=== PATIENT | female | born 1975 | race Caucasian/White ===

== ENCOUNTER 2017-10-07 06:00 | Emergency (ER) | payer MEDICAID, OTHER ==
[~2017-10-07] VITALS: Ht 162.6 cm; Wt 70.0 kg
[2017-10-07] MEDS ORDERED: dexamethasone sod phosphate 10mg/ml inj IV STA (06:27)
[2017-10-07] MEDS ORDERED: proCHLORperazine 10 MG/2 ml inj IV ONE (06:30)
[2017-10-07] MEDS ORDERED: normal saline 1000ML IV soln IVB ONE (06:30)
[2017-10-07] MEDS ORDERED: diphenhydrAMINE 50 mg/ml inj IV ONE (06:30)
[2017-10-07] MEDS ORDERED: ketorolac tromethamine 15mg/ml inj. IV ONE (06:30)
[2017-10-07] MEDS ORDERED: SUMAtriptan succ. 6 MG/0.5ml vial SQ ONE (06:30)
[2017-10-07] MEDS ORDERED: PROC-8 PO (06:35)
[2017-10-07] MEDS ORDERED: SUMA25TA35 PO (06:35)
[2017-10-07 07:59] VITALS: BP 118/81
== END 2017-10-07 07:40 | disposition home or self-care (01) ==
LOC: ER 06:00
DX: G43.909 Migraine, unspecified, not intractable, without status migrainosus (principal); J45.909 Unspecified asthma, uncomplicated; Z90.49 Acquired absence of other specified parts of digestive tract; Z98.51 Tubal ligation status; Z88.1 Allergy status to other antibiotic agents; Z88.7 Allergy status to serum and vaccine
CPT/HCPCS: 96372; 96374; 96375; 99284; J0780; J1100; J1200; J1885; J3030; J7030

== ENCOUNTER 2017-10-08 20:33 | Emergency (ER) | payer MEDICAID, OTHER ==
[~2017-10-08] VITALS: Ht 162.6 cm; Wt 78.9 kg
[~2017-10-08 20:33] MED LIST: PROC-8 PO; SUMA25TA35 PO
[2017-10-08] MEDS ORDERED: morphine 4 MG/ML inj SYRINge IV ONE (21:50)
[2017-10-08 22:11] LABS: BASOPHILS # (AUTO) 0.1 X10'3 (0-0.2); BASOPHILS % (AUTO) 0.6 % (0-1); EOSINOPHILS # (AUTO) 0.2 X10'3 (0-0.9); EOSINOPHILS % (AUTO) 2.1 % (0-6); HEMATOCRIT 35.2 % (35.0-45.0); HEMOGLOBIN 11.9 g/dl (12.0-16.0); LYMPHOCYTES # (AUTO) 2.3 X10'3 (1.1-4.8); LYMPHOCYTES % (AUTO) 24.9 % (21-51); MEAN CORPUSCULAR HGB CONC 33.8 % (33.0-36.5); MEAN CORPUSCULAR VOLUME 85.8 FL (78-98); MEAN PLATELET VOLUME 6.7 FL (7.4-10.4); MONOCYTES # (AUTO) 0.7 X10'3 (0-0.9); MONOCYTES % (AUTO) 7.5 % (2-12); NEUTROPHILS # (AUTO) 5.9 X10'3 (1.8-7.7); NEUTROPHILS % (AUTO) 64.9 % (42-75); PLATELET COUNT 467 X10'3 (140-440); RED CELL DISTRIBUTION WIDTH 13.3 % (11.5-14.5)
[2017-10-08 22:26] LABS: ALANINE AMINOTRANSFERASE 133 U/L (12-78); ALBUMIN 2.9 G/DL (3.4-5.0); ALBUMIN/GLOBULIN RATIO 0.6 (1.1-1.5); ALKALINE PHOSPHATASE 526 IU/L (46-116); ANION GAP 5 (8-16); ASPARTATE AMINO TRANSFERASE 58 U/L (10-37); BILIRUBIN,TOTAL 0.2 MG/DL (0.1-1.0); BLOOD UREA NITROGEN 12 MG/DL (7-18); BUN/CREATININE RATIO 15.8 (6.6-38.0); CALCIUM 8.9 MG/DL (8.5-10.1); CHLORIDE 98 MMOL/L (99-107); CREATININE 0.76 MG/DL (0.40-0.90); GLUCOSE 103 MG/DL (70-104); POTASSIUM 3.9 MMOL/L (3.5-5.1); SODIUM 132 MMOL/L (135-145); TOTAL PROTEIN 7.5 G/DL (6.4-8.2); eGFR 83 ML/MIN
[2017-10-08] MEDS ORDERED: ketorolac trometh. 30mg/ml inj. IV STA (22:40)
[2017-10-08 23:34] VITALS: BP 118/70
== END 2017-10-08 23:35 | disposition home or self-care (01) ==
LOC: ER 20:33
DX: R51 Headache (principal); J02.9 Acute pharyngitis, unspecified; R42 Dizziness and giddiness; R11.0 Nausea; J45.909 Unspecified asthma, uncomplicated; F17.200 Nicotine dependence, unspecified, uncomplicated; F12.90 Cannabis use, unspecified, uncomplicated; Z90.49 Acquired absence of other specified parts of digestive tract; Z98.51 Tubal ligation status; Z88.1 Allergy status to other antibiotic agents; Z88.7 Allergy status to serum and vaccine; Z79.899 Other long term (current) drug therapy
CPT/HCPCS: 36415; 70450; 80053; 85025; 96374; 96375; 99285; J1885; J2270

== ENCOUNTER 2017-10-23 17:42 | Emergency (ER) | payer MEDICAID, OTHER ==
[~2017-10-23] VITALS: Ht 162.6 cm; Wt 74.0 kg
[2017-10-23 18:04] VITALS: BP 133/81
== END 2017-10-23 20:23 | disposition home or self-care (01) ==
LOC: ER 17:43
DX: R51 Headache (principal); J45.909 Unspecified asthma, uncomplicated; F17.200 Nicotine dependence, unspecified, uncomplicated; F12.90 Cannabis use, unspecified, uncomplicated; Z90.49 Acquired absence of other specified parts of digestive tract; Z88.1 Allergy status to other antibiotic agents; Z88.8 Allergy status to other drugs, medicaments and biological substances; Z79.899 Other long term (current) drug therapy
CPT/HCPCS: 99281